=== PATIENT | female | born 1960 | race Caucasian/White ===

== ENCOUNTER 2016-08-21 09:11 | Emergency (ER) | payer OTHER ==
[~2016-08-21] VITALS: Ht 170.2 cm; Wt 67.0 kg
[2016-08-21] MEDS ORDERED: DEXAMETHASONE 4 MG/ML, 5ML ONE (09:46)
[2016-08-21] MEDS ORDERED: HYDROcodone/APAP 7.5-325MG/15ML UDC ONE (09:46)
[2016-08-21] MEDS ORDERED: DEXAMETHASONE 4 MG/ML, 1ML IM ONE (10:00)
[2016-08-21] MEDS ORDERED: HYDROcodone/APAP 7.5-325MG/15ML UDC PO ONE (10:00)
[2016-08-21] MEDS ORDERED: KETOROLAC 30 MG/1 ML ONE (10:12)
[2016-08-21] MEDS ORDERED: SODIUM CHLORIDE 0.9% 1,000ML IVBOLUS ONE (10:30)
[2016-08-21] MEDS ORDERED: SODIUM CHLORIDE FLUSH 10ML SYR IVF ONE (10:30)
[2016-08-21] MEDS ORDERED: KETOROLAC 30 MG/1 ML IVPush ONE (10:30)
[2016-08-21 11:08] VITALS: BP 120/63
== END 2016-08-21 11:10 | disposition home or self-care (01) ==
LOC: ED 11:04
DX: J03.00 Acute streptococcal tonsillitis, unspecified (principal); H92.09 Otalgia, unspecified ear; J44.9 Chronic obstructive pulmonary disease, unspecified; Z88.0 Allergy status to penicillin
CPT/HCPCS: 87880; 96361; 96372; 96374; 99284; J1100; J1885; J7030

== ENCOUNTER 2017-08-22 10:14 | Emergency (ER) | payer MEDICAID ==
[~2017-08-22] VITALS: Ht 170.2 cm; Wt 70.5 kg
[2017-08-22] MEDS ORDERED: PANTOPRAZOLE 40 MG IV ONE (10:56)
[2017-08-22] MEDS ORDERED: SODIUM CHLORIDE 0.9% 1,000ML IVBOLUS ONE (11:00)
[2017-08-22] MEDS ORDERED: PANTOPRAZOLE 40 MG IV IVPush ONE (11:00)
[2017-08-22] MEDS ORDERED: SODIUM CHLORIDE FLUSH 10ML SYR IVF ONE (11:00)
[2017-08-22 11:25] LABS: BASOPHILS # (AUTO) 0.02 x10^3/uL (0-0.1); BASOPHILS % (AUTO) 0 % (0-1); EOSINOPHILS # (AUTO) 0.04 x10^3/uL (0-0.4); EOSINOPHILS % (AUTO) 0 % (1-7); LYMPHOCYTES # (AUTO) 1.12 x10^3/uL (1-3.4); LYMPHOCYTES % (AUTO) 13 % (22-44); MD NO; MEAN CORPUSCULAR HEMOGLOBIN 31.7 pg (27.0-34.8); MEAN CORPUSCULAR HGB CONC 34.1 g/dL (32.4-35.8); MEAN CORPUSCULAR VOLUME 92.9 fL (80-100); MEAN PLATELET VOLUME 9.1 fL (7.4-10.4); MONOCYTES # (AUTO) 0.22 x10^3/uL (0.2-0.8); MONOCYTES % (AUTO) 2 % (2-9); NEUTROPHILS # (AUTO) 7.58 x10^3/uL (1.8-6.8); NEUTROPHILS % (AUTO) 84 % (42-75); PLATELET COUNT 340 x10^3/uL (130-400); RED BLOOD COUNT 4.18 x10^6/uL (3.82-5.3); RED CELL DISTRIBUTION WIDTH 13.6 % (9.6-15.2)
[2017-08-22 11:27] LABS: MICROSCOPIC NOT IND
[2017-08-22 11:30] LABS: CULTURE INDICATED? NO
[2017-08-22 11:46] LABS: ALBUMIN 3.8 g/dL (3.4-5.0); ANION GAP 8 mmol/L (5-15); CALCIUM 8.9 mg/dL (8.5-10.1); CHLORIDE 108 mmol/L (98-107)
[2017-08-22 11:49] LABS: ALANINE AMINOTRANSFERASE 26 U/L (12-78); ALKALINE PHOSPHATASE 71 U/L (45-117); BILIRUBIN,TOTAL 0.5 mg/dL (0.2-1.0); CREATININE 0.69 mg/dL (0.55-1.02)
[2017-08-22 13:07] VITALS: BP 111/60
== END 2017-08-22 13:09 | disposition home or self-care (01) ==
LOC: ED 11:41
DX: R42 Dizziness and giddiness (principal); Z87.891 Personal history of nicotine dependence; R79.1 Abnormal coagulation profile
CPT/HCPCS: 36415; 70450; 80053; 81003; 83605; 85025; 85730; 86677; 86850; 86900; 93005; 96374; 99285; C9113; J7030

== ENCOUNTER 2018-04-21 13:15 | Emergency (ER) | payer MEDICAID ==
[~2018-04-21] VITALS: Ht 170.2 cm; Wt 70.7 kg
[2018-04-21 13:52] LABS: BASOPHILS # (AUTO) 0.04 x10^3/uL (0-0.1); BASOPHILS % (AUTO) 1 % (0-1); EOSINOPHILS # (AUTO) 0.03 x10^3/uL (0-0.4); EOSINOPHILS % (AUTO) 0 % (1-7); LYMPHOCYTES % (AUTO) 25 % (22-44); MD NO; MEAN CORPUSCULAR HEMOGLOBIN 30.9 pg (27.0-34.8); MEAN CORPUSCULAR HGB CONC 34.1 g/dL (32.4-35.8); MEAN CORPUSCULAR VOLUME 90.7 fL (80-100); MEAN PLATELET VOLUME 8.9 fL (7.4-10.4); MONOCYTES # (AUTO) 0.45 x10^3/uL (0.2-0.8); MONOCYTES % (AUTO) 5 % (2-9); NEUTROPHILS # (AUTO) 6.07 x10^3/uL (1.8-6.8); NEUTROPHILS % (AUTO) 69 % (42-75); PLATELET COUNT 413 x10^3/uL (130-400); RED CELL DISTRIBUTION WIDTH 13.6 % (9.6-15.2)
[2018-04-21] MEDS ORDERED: FAMOTIDINE 20 MG TABLET PO ONE (14:00)
[2018-04-21] MEDS ORDERED: LORazepam 0.5MG TABLET PO ONE (14:00)
[2018-04-21 14:03] LABS: ANION GAP 6 mmol/L (5-15); CALCIUM 9.3 mg/dL (8.5-10.1); CHLORIDE 106 mmol/L (98-107)
--- NOTE | 2018-04-21 15:02 | NUR ---
PT ARRIVES TO ED WITH C/O OF SOB X 3DAYS. PT IS VERY ANXIOUS ON ARRIVAL. PT REPORTS THAT SHE RECENTLY GOT SOME BAD NEWS AND HAS CAUSED ALOT OF STRESS AND ANXIETY. PT IS BREATHUING UNLABORED AND EQUALLY. NAND. VSS. PT HAS CLEAR LUNG SOUNDS. PT CONNECTED TO MONITORS AND CALL LIGHT IN REACH. AWAITING FURTHER ORDERS.
[2018-04-21] MEDS ORDERED: FAMOTIDINE 20 MG TABLET ONE (15:09)
[2018-04-21] MEDS ORDERED: LORazepam 0.5MG TABLET ONE (15:10)
--- NOTE | 2018-04-21 15:21 | NUR ---
PT MEDICATED PER EMAR, PT BACK FROM XRAY.
[2018-04-21 15:22] LABS: TROPONIN I < 0.015 ng/mL (0.000-0.045)
[2018-04-21 15:49] VITALS: BP 132/84
--- NOTE | 2018-04-21 15:50 | NUR ---
PT RESTING IN ROOM,
--- NOTE | 2018-04-21 16:29 | NUR ---
Patient/Caregiver given discharge instructions and they have confirmed that they understand the instructions. Patient ambulatory with steady gait.
== END 2018-04-21 17:06 | disposition home or self-care (01) ==
LOC: ED 17:00
DX: F41.1 Generalized anxiety disorder (principal); R13.13 Dysphagia, pharyngeal phase; J44.9 Chronic obstructive pulmonary disease, unspecified; Z90.49 Acquired absence of other specified parts of digestive tract; Z90.89 Acquired absence of other organs
CPT/HCPCS: 36415; 70360; 71046; 80048; 84484; 85025; 93005; 99284

== ENCOUNTER 2019-10-02 11:30 | Emergency (ER) | payer MEDICAID ==
[~2019-10-02] VITALS: Ht 170.2 cm; Wt 70.0 kg
[2019-10-02 11:32] VITALS: BP 138/79
--- NOTE | 2019-10-02 11:49 | NUR ---
ICE PACK APPLIED PLAN MEDS/XR.
[2019-10-02] MEDS ORDERED: HYDROcodone/APAP 5/325 TABLET ONE (11:50)
[2019-10-02] MEDS ORDERED: HYDROcodone/APAP 5/325 TABLET PO ONE (12:00)
--- NOTE | 2019-10-02 13:10 | NUR ---
XR NEG RECHECK.
== END 2019-10-02 14:36 | disposition home or self-care (01) ==
LOC: ED 12:57
DX: S80.02XA Contusion of left knee, initial encounter (principal); F17.200 Nicotine dependence, unspecified, uncomplicated; W01.0XXA Fall on same level from slipping, tripping and stumbling without subsequent striking against object, initial encounter; Y93.89 Activity, other specified; Y92.89 Other specified places as the place of occurrence of the external cause; Y99.8 Other external cause status
CPT/HCPCS: 99283